=== PATIENT | male | born 1990 | race Caucasian/White ===

== ENCOUNTER 2019-10-03 09:16 | Emergency (ER) | payer OTHER ==
[~2019-10-03] VITALS: Ht 182.9 cm; Wt 105.9 kg
[2019-10-03] MEDS ORDERED: CYCLOBENZAPRINE 10 MG TAB PO ONE (10:15)
[2019-10-03] MEDS ORDERED: NAPROXEN 250 MG TAB PO ONE (10:15)
[2019-10-03] MEDS ORDERED: CYCL10TA PO (11:11)
[2019-10-03] MEDS ORDERED: NAPR-837 PO (11:11)
[2019-10-03 11:20] VITALS: BP 160/86
--- NOTE | 2019-10-03 11:26 | REP ---
CT CERVICAL SPINE WITHOUT CONTRAST: CT cervical spine performed without IV contrast. Sagittal and coronal reconstruction images are performed. There is no fracture or dislocation. Vertebral bodies are normal in height and are well aligned. There is no prevertebral soft tissue swelling. Disc spaces are well preserved. Spinal canal is adequate with no abnormal density. IMPRESSION: No acute fracture or dislocation. Electronically Signed by Jeff Mcdaniel MD 10/03/2019 06:42 P
== END 2019-10-03 11:20 | disposition home or self-care (01) ==
LOC: M ED 09:16
DX: S16.9XXA Unspecified injury of muscle, fascia and tendon at neck level, initial encounter (principal); S49.92XA Unspecified injury of left shoulder and upper arm, initial encounter; V43.52XA Car driver injured in collision with other type car in traffic accident, initial encounter; Y92.9 Unspecified place or not applicable; Y93.9 Activity, unspecified; Y99.9 Unspecified external cause status